=== PATIENT | male | born 1940 | race Caucasian/White ===

== ENCOUNTER → 2016-07-02 | Outpatient (CLI) | payer MEDICARE | LOC: RAD 09:45 | PROVIDERS: ATTEND Student in an Organized Health Care Education/Training Program | DX: M54.16 Radiculopathy, lumbar region (principal) | CPT/HCPCS: 72148 ==

== ENCOUNTER → 2016-07-21 | Outpatient (CLI) | payer MEDICARE, OTHER ==
[~2016-07-21] MED LIST: AMINOPHYLLINE INJ/PF 250 MG/10 ML SDV IV ONE; REGADENOSON INJ 0.4 MG/5 ML DISP.SYRIN IV ONE
--- NOTE | 2016-07-21 13:23 | XCELERA REPORT ---
[address] [address] Transthoracic Echocardiogram Report Name: WINIFRED ALVAREZ Age: 75 yrs Gender: Male : 1940 Patient Status: Outpatient Patient Location: RAD Study Date: 07/21/2016 09:39 AM Height: 70 in Weight: 222 lb BSA: 2.2 m2 Procedure: A complete two-dimensional transthoracic echocardiogram was performed (2D, M-mode, spectral and color flow Doppler). The study was technically difficult with many images being suboptimal in quality. Reason For Study: CAD, SOB Ordering Physician: DELFINA FAULKNER Performed By: Janee Guo Interpretation Summary The left ventricular ejection fraction is normal. There is borderline concentric left ventricular hypertrophy. Doppler measurements suggest impaired left ventricular relaxation, which is associated with grade I/IV or mild diastolic dysfunction The left ventricle is grossly normal size. Wall motion cannot be accurately commented on, but no definite regional wall motion abnormalities noted. The right ventricular systolic function is normal. The left atrium is borderline dilated. The right atrium is normal in size There is a trace amount of mitral regurgitation There is no mitral valve stenosis. There is no aortic valve stenosis No aortic regurgitation is present. There is a trace or physiologic amount of tricuspid regurgitation Tricuspid regurgitation jet envelope not well defined to measure RV systolic pressure accurately. The aortic root is not well visualized but is probably normal size. The inferior vena cava appeared normal and decreased > 50% with respiration (RAP 5-10 mmHg) There is no pericardial effusion. MMode/2D Measurements \T\ Calculations RVDd: 2.7 cm LVIDd: 5.0 cm FS: 38.1 % Ao root diam: 3.3 cm IVSd: 0.96 cm LVIDs: 3.1 cm EDV(Teich): 120.7 ml LVPWd: 0.96 cmESV(Teich): 38.6 ml Ao root area: 8.7 cm2 EF(Teich): 68.0 % LA dimension: 3.7 cm LVOT diam: 2.3 cm LVOT area: 4.3 cm2 Doppler Measurements \T\ Calculations MV E max vanessa: MV P1/2t max vanessa: Ao V2 max: LV V1 max P.9 cm/sec 89.1 cm/sec 157.5 cm/sec 6.4 mmHg MV A max vanessa: MV P1/2t: 56.5 msec Ao max PG: LV V1 max: 112.2 cm/sec MVA(P1/2t): 3.9 cm2 9.9 mmHg 126.4 cm/sec MV E/A: 0.78 MV dec slope: [place](V,D): 3.4 cm2 462.0 cm/sec2 PA V2 max: TR max vanessa: 64.8 cm/sec 205.6 cm/sec PA max P.7 mmHgTR max P.9 mmHg Left Ventricle The left ventricle is grossly normal size. There is borderline concentric left ventricular hypertrophy. The left ventricular ejection fraction is normal. Doppler measurements suggest impaired left ventricular relaxation, which is associated with grade I/IV or mild diastolic dysfunction. Wall motion cannot be accurately commented on, but no definite regional wall motion abnormalities noted. Right Ventricle The right ventricle is grossly normal size. There is normal right ventricular wall thickness. The right ventricular systolic function is normal. Atria The right atrium is normal in size. The left atrium is borderline dilated. Interarterial septum not well visualized and not well dopplered. Cannot comment on ASD/PFO presence. Mitral Valve There is mild mitral annular calcification. There is no mitral valve stenosis. There is a trace amount of mitral regurgitation. Aortic Valve The aortic valve is mildly calcified. There is no aortic valve stenosis. No aortic regurgitation is present. Tricuspid Valve The tricuspid valve is not well visualized, but is grossly normal. There is no tricuspid stenosis. There is a trace or physiologic amount of tricuspid regurgitation. Tricuspid regurgitation jet envelope not well defined to measure RV systolic pressure accurately. Pulmonic Valve The pulmonic valve is not well visualized. Great Vessels The aortic root is not well visualized but is probably normal size. The inferior vena cava appeared normal and decreased > 50% with respiration (RAP 5-10 mmHg). Effusions There is no pericardial effusion. : DELFINA FAULKNER > Delfina Faulkner
--- NOTE | 2016-07-22 10:06 | DRAGON STRESS TEST REPORT ---
INTRAVENOUS LEXISCAN CARDIOLITE STRESS TEST USING SINGLE PHOTON EMMISION COMPUTERIZED TOMOGRAPHIC. DATE OF PROCEDURE: July 21, 2016 INDICATION : Shortness of breath CARDIAC RISK FACTORS: Hypertension, dyslipidemia, known CAD RESTING EKG: Sinus rhythm, no Baseline ST-T wave changes STRESS EKG: No significant changes noted with LexiScan bolus REASON FOR TERMINATION: Protocol. PROCEDURE REPORT: Baseline heart rate 63 beats per minute with blood pressure of 153/65. Patient had no significant complaints. Heart rate at 2 minutes post bolus 94 with a blood pressure of 124/51. 3 minutes post bolus heart rate 77 with blood pressure of 133/52. No significant EKG changes were noted. Patient had no significant complaints during the procedure or postprocedure. CONCLUSIONS: Normal EKG and hemodynamic response to IV LexiScan. NUCLEAR DATA: At rest the patient was given 15.0 millicuries of technetium 99 sestamibi injected intravenously. As per protocol rest gated SPECT images were obtained. Subsequently the patient was given intravenous LexiScan at a dose of 0.4 mg in 5 mL intravenously, followed by flush with normal saline. Subsequently the stress dose of 42.9 millicuries of technetium 99 sestamibi was injected intravenously. As per protocol stress gated images were obtained. NUCLEAR INTERPRETATION: Both raw and processed data were used for interpretation. Visual, qualitative, computer-generated quantitative data was used. There was good myocardial uptake of technetium compound. Motion artifact and soft tissue attenuations were noted. Increased visceral uptake was noted. No definitive areas of transient perfusion defect noted, except for borderline decreased uptake in the mid anterior wall and mid anterior septum, total area of small, 2 out of 17 segments. No definitive areas of fixed perfusion defect or scars noted. EKG gated imaging showed LV EF at 56 %, rest and stress gated EF similar visually. T. I D. ratio was 1.19. Lung heart ratio noted to be within normal limits 0.32. No significant extracardiac and abnormal radiotracer activities were noted. RV free wall uptake was noted to be normal. IMPRESSION: Also refer to comments under nuclear interpretation. Also test results needs to be interpreted in the context of pretest probability. 1. There is no definitive scintigraphic evidence of LexiScan induced myocardial ischemia, except for borderline transient perfusion defect in the mid anterior and mid anterior septum area. Probably not significant but clinical correlation is requested. 2. There is no definitive scintigraphic evidence of myocardial infarction/scar. 3. EKG gated imaging shows left ejection fraction of approximately 56 %. 4. Clinical correlation requested as occasionally single vessel disease or balanced ischemia could be missed. In approximately 10% of the cases Lexiscan may not cause adequate vasodilatory stress. RECOMMENDATIONS: Aggressive risk factor modification, medical therapy. Clinical correlation with echocardiogram derived ejection fraction. Inability to exercise by itself can lead to increased cardiovascular event risks. Consider cardiology consultation and or follow-up if clinically indicated. I AM AVAILABLE FOR CARDIOLOGY CONSULTATION AND FOLLOWUP IF REQUESTED BY PMD Delfina Morris M.D., GRACIE Director [employer] automotive exhaust emissions technician, Board certified in cardiovascular diseases, Nuclear cardiology, Echocardiography Cardiac CT and cardiac MRI Ph. [phone] [facility]
== END ==
LOC: RAD 07:31
PROVIDERS: ATTEND Internal Medicine Cardiovascular Disease
DX: I25.10 Atherosclerotic heart disease of native coronary artery without angina pectoris (principal); R06.02 Shortness of breath
CPT/HCPCS: 93306; 93017; 78452; A9500; J2785; J0280; Q9969

== ENCOUNTER 2017-05-30 18:36 | Emergency (ER) | payer MEDICARE, OTHER ==
[2017-05-30] MEDS ORDERED: HYDROCODONE/ACETAMINOPHEN 5-325 MG TABLET PO ONE (22:55)
--- NOTE | 2017-05-30 23:04 | ER Document Report ---
ED Medical Screen (RME) - General Chief Complaint: Back Pain Stated Complaint: BACK PAIN Time Seen by Provider: 05/30/17 22:54 Notes: 76-year-old male, chief complaint of pain in his back on the left side in the middle that is sharp and nauseating, started about 5 hours ago, he also has pain in his mid upper abdomen. He denies fever or chills. He denies pain up in his chest, he denies shortness of breath or lightheadedness. Denies history of kidney stone, past medical history of [place], hypertension, partial small bowel resection. TRAVEL OUTSIDE OF THE [place] IN LAST 30 DAYS: No - Related Data Allergies/Adverse Reactions: No Known Allergies Allergy (Unverified 02/05/16 11:48) Past Medical History - Social History Chew tobacco use (# tins/day): No Frequency of alcohol use: None Drug Abuse: None - Past Medical History Cardiac Medical History: Reports: Hx Heart Attack, Hx Hypertension Pulmonary Medical History: Denies: Hx Asthma Neurological Medical History: Denies: Hx Cerebrovascular Accident, Hx Seizures Renal/ Medical History: Denies: Hx Peritoneal Dialysis GI Medical History: Denies: Hx Hepatitis, Hx Hiatal Hernia, Hx Ulcer Infectious Medical History: Denies: Hx Hepatitis Past Surgical History: Reports: Hx Abdominal Surgery - small bowel removal. Denies: Hx Open Heart Surgery, Hx Pacemaker Physical Exam - Vital signs Vitals: Temp Pulse Resp BP Pulse Ox 98.5 F 51 L 16 135/61 H 100 05/30/17 19:01 05/30/17 19:01 05/30/17 19:01 05/30/17 19:01 05/30/17 19:01 - Abdominal Tenderness: Tender - tender in epigastric region, otherwise unremarkable - Back Back: Tender - left mid flank, no midline tenderness Course - Re-evaluation Re-evalutation: 05/30/17 23:00 Patient with palpable tenderness over both the epigastric area and the left mid flank, he does appear uncomfortable, asking for something for pain and nausea. Checking cardiacs, acute abdominal series, general workup including lipase and urine. Workup pending. Vital signs stable at this time. - Vital Signs Vital signs: Temp Pulse Resp BP Pulse Ox 98.0 F 56 L 20 124/56 L 100 05/30/17 22:46 05/30/17 22:46 05/30/17 22:46 05/30/17 22:46 05/30/17 22:46
[2017-05-30] MEDS ORDERED: ONDANSETRON HCL INJ/PF 4 MG/2 ML SDV IV ONE (23:30)
[2017-05-30] MEDS ORDERED: MORPHINE SULFATE 10 MG/ML INJ IV ONE (23:30)
[2017-05-30 23:32] LABS: APPEARANCE,URINE SLIGHTLY-CLOUDY; BILIRUBIN,URINE NEGATIVE (NEGATIVE); COLOR,URINE YELLOW; GLUCOSE, URINE NEGATIVE (NEGATIVE); KETONES,URINE NEGATIVE (NEGATIVE); LEUKOCYTE ESTERASE,URINE NEGATIVE (NEGATIVE); NITRITE,URINE NEGATIVE (NEGATIVE); PROTEIN,URINE NEGATIVE (NEGATIVE); URINE SPECIFIC GRAVITY 1.028; UROBILINOGEN,URINE NEGATIVE mg/dL (<2.0)
--- NOTE | 2017-05-30 23:35 | RADIOLOGY REPORT (SQ) ---
EXAM DESCRIPTION: ACUTE ABDOMEN SERIES COMPLETED DATE/TIME: 05/30/2017 11:21 pm REASON FOR STUDY: sharp epigastric and mid back pain, bowel surg COMPARISON: None. NUMBER OF VIEWS: Three views. TECHNIQUE: Frontal chest, supine abdomen and upright/decubitus abdomen radiographic images acquired. LIMITATIONS: None. FINDINGS: CHEST: Lungs clear of infiltrates. FREE AIR: No free air identified. BOWEL GAS PATTERN: There are a few mildly dilated small bowel loops over the upper central abdomen wi th air fluid levels. CALCIFICATIONS: No suspicious calcifications. HARDWARE: Cholecystectomy clips. SOFT TISSUES: No gross mass or suggestion of organomegaly. BONES: No acute fracture. Moderate lumbar degenerative changes. OTHER: No other significant finding. IMPRESSION: There are a few mildly dilated small bowel loops over the upper central abdomen with sma ll air fluid levels, possible developing obstruction. TECHNICAL DOCUMENTATION: JOB ID: [id number] [id number] [employer]- All Rights Reserved
[2017-05-30 23:50] LABS: ALANINE AMINOTRANSFERASE 33 U/L (21-72); ALBUMIN 4.9 g/dL (3.5-5.0); ALKALINE PHOSPHATASE 44 U/L (38-126); ANION GAP 15 (5-19); ASPARTATE AMINO TRANSFERASE 32 U/L (17-59); BILIRUBIN,DIRECT 0.5 mg/dL (0.0-0.4); BLOOD UREA NITROGEN 22 mg/dL (7-20); CALCIUM 10.2 mg/dL (8.4-10.2); CARBON DIOXIDE 21 mmol/L (22-30); CHLORIDE 107 mmol/L (98-107); CREATINE KINASE 125 U/L (55-170); GLUCOSE 114 mg/dL (75-110); LIPASE 74.4 U/L (23-300); POTASSIUM 4.9 mmol/L (3.6-5.0); SODIUM 143.1 mmol/L (137-145); TOTAL PROTEIN 7.7 g/dL (6.3-8.2)
[2017-05-31 00:02] LABS: CREATINE KINASE MB 0.98 ng/mL (<4.55)
[2017-05-31 00:03] LABS: TROPONIN I < 0.012 ng/mL
[2017-05-31 00:05] LABS: ABSOLUTE LYMPHOCYTES (AUTO) 0.6 10^3/uL (0.5-4.7); ABSOLUTE MONOCYTES (AUTO) 0.3 10^3/uL (0.1-1.4); ABSOLUTE NEUT (AUTO) 6.1 10^3/uL (1.7-8.2); BASOPHILS % (AUTO) 0.6 % (0-2); EOSINOPHILS % (AUTO) 0.2 % (0-6); HEMATOCRIT 34.7 % (37.9-51.0); HEMOGLOBIN 11.6 g/dL (13.5-17.0); LYMPHOCYTES % (AUTO) 8.4 % (13-45); MEAN CORPUSCULAR HEMOGLOBIN 28.8 pg (27.0-33.4); MEAN CORPUSCULAR HGB CONC 33.5 g/dL (32.0-36.0); MEAN CORPUSCULAR VOLUME 86 fl (80-97); MONOCYTES % (AUTO) 4.2 % (3-13); PLATELET COUNT 137 10^3/uL (150-450); RED BLOOD COUNT 4.03 10^6/uL (4.35-5.55); RED CELL DISTRIBUTION WIDTH 13.9 % (11.5-14.0); SEGMENTED NEUTROPHILS % (AUTO) 86.6 % (42-78); TOTAL CELLS COUNTED % (AUTO) 100 %; WHITE BLOOD COUNT 7.1 10^3/uL (4.0-10.5)
--- NOTE | 2017-05-31 01:16 | ER Document Report ---
ED General - General Chief Complaint: Back Pain Stated Complaint: BACK PAIN Time Seen by Provider: 05/30/17 22:54 Notes: Patient is a pleasant 76-year-old male presents with complaint of pain over his left lower back. No dysuria. No urinary frequency. No difficulty urinating. No loss of bowel control. Pain started over the last 24 hours. He is worse with movement. No pain rating into his legs. No recent fevers or infections. No vomiting. No diarrhea. No history of chronic back pain. No abdominal pain. No associated chest pain. TRAVEL OUTSIDE OF THE [place] IN LAST 30 DAYS: No - Related Data Allergies/Adverse Reactions: No Known Allergies Allergy (Unverified 02/05/16 11:48) Past Medical History - Social History Smoking Status: Former Smoker Chew tobacco use (# tins/day): No Frequency of alcohol use: None Drug Abuse: None Family History: Reviewed & Not Pertinent Patient has suicidal ideation: No Patient has homicidal ideation: No - Past Medical History Cardiac Medical History: Reports: Hx Heart Attack, Hx Hypertension Pulmonary Medical History: Denies: Hx Asthma Neurological Medical History: Denies: Hx Cerebrovascular Accident, Hx Seizures Renal/ Medical History: Denies: Hx Peritoneal Dialysis GI Medical History: Denies: Hx Hepatitis, Hx Hiatal Hernia, Hx Ulcer Infectious Medical History: Denies: Hx Hepatitis Past Surgical History: Reports: Hx Abdominal Surgery - small bowel removal. Denies: Hx Open Heart Surgery, Hx Pacemaker Review of Systems - Review of Systems Notes: My Normal Review Basic REVIEW OF SYSTEMS: CONSTITUTIONAL : Denies fever, chills, or sweats. Denies recent illness. EENT: Denies eye, ear, throat, or mouth pain or symptoms. Denies nasal or sinus congestion. CARDIOVASCULAR: Denies chest pain. RESPIRATORY: Denies cough, cold, or chest congestion. Denies shortness of breath, difficulty breathing, or wheezing. GASTROINTESTINAL: Denies abdominal pain. Denies nausea, vomiting, or diarrhea. Denies constipation. Last BM: GENITOURINARY: Denies difficulty urinating, painful urination, burning, frequency, or blood in urine. MUSCULOSKELETAL: Left lower back pain SKIN: Denies rash or skin lesions. NEUROLOGICAL: Denies focal weakness or paralysis or loss of use of either side. Denies problems with gait or speech. Denies sensory or motor loss. ALL OTHER SYSTEMS REVIEWED AND NEGATIVE. Physical Exam - Vital signs Vitals: Temp Pulse Resp BP Pulse Ox 98.5 F 51 L 16 135/61 H 100 05/30/17 19:01 05/30/17 19:01 05/30/17 19:01 05/30/17 19:01 05/30/17 19:01 - Notes Notes: General Appearance: Well nourished, alert, cooperative, no acute distress, moderate obvious discomfort. Vitals: reviewed, See vital signs table. Head: no swelling or tenderness to the head Eyes: PERRL, EOMI, Conjuctiva clear Mouth: No decreasd moisture Lungs: No wheezing, No rales, No rhonci, No accessory muscle use, good air exchange bilaterally. Heart: Normal rate, Regular rythm, No murmur, no rub Abdomen: Normal BS, soft, No rigidity, No abdominal tenderness, No guarding, no rebound, Back: Patient has easily reproducible pain to palpation over the left lumbar paraspinal musculature. With mild pressure of this area the patient jumps screams and says that is where his pain is. The remainder of the back is nontender. No pain into the flank to palpation. Extremities: strength 5/5 in all extremities, good pulses in all extremities, no swelling or tenderness in the extremities, no edema. Skin: warm, dry, appropriate color, no rash Neuro: speech clear, oriented x 3, normal affect, responds appropriately to questions. Normal distal sensation. Course - Re-evaluation Re-evalutation: 05/31/17 01:16 Normal x-rays read by the radiologist as some small dilated loops of bowel which could represent possible developing obstruction. Patient's symptoms are not consistent with obstruction. I did reassess him. He has no pain to palpation of his abdomen. He has had no vomiting. He is having normal bowel movements without difficulty. He says been passing gas well. His pain is still all in his left lower back. It is easily reproducible to palpation. Does not have any blood in his urine but still he has never had issues with his back before and therefore is possibly this could be kidney stone. We will obtain a CT scan to further evaluate. Patient is agreeable to this. 05/31/17 05:25 CT scan did not show any evidence of kidney stone. There is no findings consistent with bowel obstruction either. Clinically has presentation and exam is not consistent at all with bowel obstruction. Patient's pain seems very musculoskeletal on exam and that is worse with movements and also is easily reproducible with pinpoint palpation over the left lumbar paraspinal musculature. I will place patient on Ultram. Encouraged him to take Tylenol Motrin first. If the Tylenol Motrin are not taking care of his pain that he should take the Ultram for the pain control. I informed him he must follow-up with his doctor next 2-3 days for reevaluation. I informed him return to ER immediately if he has any change in location of the pain, any abdominal pain, worsening pain, fevers, or feels unwell. Patient agrees with plan and will be discharged home. Dictation of this chart was performed using voice recognition software; therefore, there may be some unintended grammatical errors. - Vital Signs Vital signs: Temp Pulse Resp BP Pulse Ox 98.6 F 72 16 130/68 H 100 05/31/17 03:44 05/31/17 03:44 05/31/17 03:44 05/31/17 03:44 05/31/17 03:44 - Laboratory Result Diagrams: 05/30/17 23:55 05/30/17 23:00 Laboratory results interpreted by me: 05/30/17 05/30/17 05/30/17 23:00 23:00 23:55 RBC 4.03 L Hgb 11.6 L Hct 34.7 L Plt Count 137 L Seg Neutrophils % 86.6 H Lymphocytes % 8.4 L Carbon Dioxide 21 L BUN 22 H Glucose 114 H Direct Bilirubin 0.5 H Urine Ascorbic Acid 40 H Discharge - Discharge Clinical Impression: Back pain Qualifiers: Back pain location: low back pain Chronicity: acute Back pain laterality: left Sciatica presence: without sciatica Qualified Code(s): M54.5 - Low back pain Condition: Good Disposition: HOME, SELF-CARE Instructions: Oral Narcotic Medication ([facility]) Additional Instructions: Your pain appears to be coming from a muscle in your back. I suspect it is the muscle being that you are so tender to touch over the lumbar paraspinal muscle and the remainder of you workup did not show any other concerning findings that could be causing your pain. Please follow up with your doctor in 1-2 days for clsoe reevaluation. We did perform a CT scan looking for evidence of kidney stones. Your CT scan did not show any concerning findings. The only abnormality was a cyst on your pancreas. Anytime you have a cyst on your pancreas you need to have repeat imaging done in the future to make sure it is stable and not changing in size. Please inform your doctor of this so he can follow this and arrange repeat imaging when needed. Please return to the ER immediately if you have worsening pain, change in location of pain, any abdominal pain, vomiting, fevers, or if you feel that you are worsening. Take the Ultram for pain if Tylenol is not controlling your pain. The Ultram may make you a little sleepy. Some pople do get vomiting with this medication. Please stop taking the medication and return to the ER or your doctor if you develop vomiting after taking it. Prescriptions: Tramadol HCl [Ultram 50 mg Tablet] 50 mg PO Q6HP PRN #14 tablet PRN Reason: Referrals: CRISTIAN HERNANDEZ DO [Primary Care Provider] - 06/02/17
--- NOTE | 2017-05-31 02:10 | RADIOLOGY REPORT (SQ) ---
EXAM DESCRIPTION: CT ABDOMEN AND PELVIS WITHOUT CONTRAST CLINICAL HISTORY: left back and flank pain COMPARISON: None Available. TECHNIQUE: CT of the abdomen and pelvis without IV contrast. FINDINGS: Abdomen: The liver has normal size and density. Punctate likely granuloma involving the right hepatic lobe. Prior cholecystectomy. 6.1 x 3.2 cm cystic structure arising from the tail of the pancreas. The spleen and adrenal glands are unremarkable. The kidneys have normal size and contour without evidence of hydronephrosis. No obstructing ureteral calculi. Punctate nonobstructing inferior pole right renal calculus. Aortoiliac atherosclerosis. IVC is unremarkable. No free intraperitoneal air. The stomach and duodenum have normal course. Pelvis: Small bilateral fat-containing inguinal hernias. Enlarged prostate. Urinary bladder is unremarkable. No free pelvic fluid or lymphadenopathy. No dilated loops of large or small bowel. No evidence of appendicitis. The visualized lung bases are clear. No destructive bone lesions identified. Degenerative change of the lumbar spine. DLP: 849.91 mGy-cm IMPRESSION: 1. No acute inflammatory or obstructive abnormality identified. 2. There is a 6.1 cm cystic structure arising from the tail of the pancreas. This could represent a pancreatic pseudocyst however other cystic lesions of the pancreas could produce a similar appearance. Correlation for history of pancreatitis recommended. Contrast-enhanced CT or MRI of the abdomen recommended for more complete characterization. 3. Punctate nonobstructing left renal calculus. 4. Enlarged prostate. This exam was performed according to our departmental dose-optimization program, which includes automated exposure control, adjustment of the mA and/or kV according to patient size and/or use of iterative reconstruction technique.
[2017-05-31] MEDS ORDERED: KETOROLAC TROMETHAMINE INJ/PF 30 MG/1 ML SDV IV ONE (02:25)
[2017-05-31 03:45] VITALS: BP 130/68
--- NOTE | 2017-05-31 08:48 | EKG REPORT ---
SEVERITY:- ABNORMAL ECG - SINUS BRADYCARDIA PROBABLE ANTEROSEPTAL INFARCT, AGE INDETERM : Confirmed by: Lenore May MD 31-May-2017 08:47:32
== END 2017-05-31 03:45 | disposition home or self-care (01) ==
LOC: ER 18:36
DX: M54.5 Low back pain (principal); M54.9 Dorsalgia, unspecified; Z87.891 Personal history of nicotine dependence
CPT/HCPCS: 93005; 99284; 96374; 36415; 82553; 82550; 83690; 85025; 80053; 81001; 84484; 74022; 74176; 93010; J2270; J2405

== ENCOUNTER → 2017-07-14 | Outpatient (CLI) | payer MEDICARE, OTHER ==
[~2017-07-14] MED LIST changes: -AMINOPHYLLINE INJ/PF 250 MG/10 ML SDV IV ONE; +DIAZEPAM 5 MG TABLET ONE; -REGADENOSON INJ 0.4 MG/5 ML DISP.SYRIN IV ONE
--- NOTE | 2017-07-14 17:18 | RADIOLOGY REPORT (SQ) ---
EXAM DESCRIPTION: MRI ABDOMEN COMBO COMPLETED DATE/TIME: 07/14/2017 4:12 pm REASON FOR STUDY: K86.2 CYST OF PANCREAS K86.2 CYST OF PANCREAS COMPARISON: None. TECHNIQUE: Multiplanar multisequence imaging performed without and with contrast including sagittal, axial and coronal T2, axial T1, axial gradient fat sat T1, axial, sagittal and coronal fat sat T1 po st contrast. CONTRAST TYPE AND DOSE: 20 mL Prohance. RENAL FUNCTION: GFR > 60. LIMITATIONS: Motion. FINDINGS: LIVER: Normal size. No masses. No dilated ducts. CBD normal. SPLEEN: Normal size. No focal lesions. PANCREAS: Well-circumscribed lesion in the tail measuring 3.0 x 5.3 cm AP by transverse diameter. He terogeneously bright on T2 with central septations of decreased T2 signal inferiorly and more homogen eous high T2 signal superiorly. Dark on T1, no enhancement. No obvious communication with the pancr eatic duct. Pancreatic duct is not dilated. GALLBLADDER: No masses. No stones. No gallbladder wall thickening or pericholecystic fluid. ADRENAL GLANDS: No significant masses or asymmetry. RIGHT KIDNEY AND URETER: No masses. No hydronephrosis. LEFT KIDNEY AND URETER: No masses. No hydronephrosis. AORTA AND VESSELS: No aneurysm. RETROPERITONEUM: No retroperitoneal adenopathy, hemorrhage or masses. BOWEL: No visualized masses. No inflammation. No significant dilatation. ABDOMINAL WALL AND PERITONEUM: No hernias. No free fluid. BONES: No acute or significant findings. OTHER: No other significant finding. IMPRESSION: Nonenhancing complex cystic lesion in the tail of the pancreas. Differential is complex pseudocyst (particularly if history of chronic pancreatitis,) cystadenoma, IPMN, among others. Rela tively low suspicion of malignancy but insufficient negative predictive value based on imaging appear ance alone. Potentially amenable to CT-guided biopsy. Consider endoscopic ultrasound. TECHNICAL DOCUMENTATION: JOB ID: [id number] [employer]- All Rights Reserved Reading location - IP/workstation name: [email or web address]
== END ==
LOC: RAD 14:50
PROVIDERS: ATTEND Family Medicine
DX: K86.2 Cyst of pancreas (principal)
CPT/HCPCS: 82565; 74183; A9270

== ENCOUNTER 2017-08-15 08:29 | Day surgery (SDC) | payer MEDICARE ==
[2017-08-15] MEDS ORDERED: DIPHENHYDRAMINE HCL 50 MG/ML VIAL ONE (09:22)
[2017-08-15] MEDS ORDERED: ONDANSETRON HCL INJ/PF 4 MG/2 ML SDV ONE (09:22)
[2017-08-15] MEDS ORDERED: FLUMAZENIL INJ 0.5 MG/5 ML VIAL ONE (09:23)
[2017-08-15] MEDS ORDERED: FENTANYL CITRATE INJ/PF 100 MCG/2 ML AMPUL ONE (09:23)
[2017-08-15] MEDS ORDERED: NALOXONE HCL INJ/PF 0.4 MG/1 ML SDV ONE (09:23)
[2017-08-15] MEDS ORDERED: EPINEPHRINE INJ 1 MG/10 ML DISP.SYRIN ONE (09:23)
[2017-08-15] MEDS ORDERED: MIDAZOLAM 2 MG/2 ML INJ ONE (09:23)
[2017-08-15] MEDS ORDERED: GLUCAGON,HUMAN RECOMB 1 MG INJ ONE (09:24)
[2017-08-15] MEDS: MIDAZOLAM 2 MG/2 ML INJ ONE ×2 (09:26→09:30)
--- NOTE | 2017-08-15 09:47 | Operative Report ---
Operative Report DATE OF SURGERY: 08/15/17 Operative Report: The risks, benefits and alternatives of the procedure including risks of bleeding, perforation requiring surgery are explained to the patient in detail and informed consent is obtained. Patient is taken back to the endoscopy suite and placed in the left, lateral decubital position. Timeout was called. Conscious sedation medications are provided. A rectal examination is done which did not reveal any masses, tears or fissures. An Olympus videoscope was inserted into the patient's rectum. It is carefully advanced all the way to the cecum. The cecum was identified by the usual anatomical landmarks including the ileocecal valve as well as the appendiceal office. Photodocumentation is obtained. The scope was then sequentially pulled back via the various segments of the colon including the ascending colon, hepatic flexure, transverse colon, splenic flexure, descending colon and finally into the rectosigmoid portions of the colon. Retroflexion maneuvers performed. PREOPERATIVE DIAGNOSIS: Abdominal pain. Colorectal cancer screening. 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 POSTOPERATIVE DIAGNOSIS: Ulcer at the anastomotic site status post biopsy OPERATION: Colonoscopy with biopsy SURGEON: ANTHONY NICHOLAS ANESTHESIA: Moderate Sedation - 3 mg of Versed, 25 mcg of fentanyl. Conscious sedation monitoring time 30 minutes. TISSUE REMOVED OR ALTERED: As noted above. COMPLICATIONS: None. ESTIMATED BLOOD LOSS: None. INTRAOPERATIVE FINDINGS: As noted above. PROCEDURE: Patient tolerated the procedure well. No immediate postprocedure complications are noted. Patient discharged in good condition. Discharge date 08/15/2017. Discharge diet: Regular. Discharge activity: Regular. 2-3 week follow-up to discuss findings. Patient is instructed call the office or proceed to the emergency room should there be any further problems or questions. We will went pathology.
[2017-08-15 11:31] VITALS: BP 111/51
== END 2017-08-15 10:40 | disposition home or self-care (01) ==
LOC: END 08:29
PROVIDERS: ATTEND Internal Medicine Gastroenterology
PROC: 0DBE8ZX Excision of Large Intestine, Via Natural or Artificial Opening Endoscopic, Diagnostic (ICD-10-PCS; principal; 2017-08-15 09:00)
DX: K28.9 Gastrojejunal ulcer, unspecified as acute or chronic, without hemorrhage or perforation (principal); K52.9 Noninfective gastroenteritis and colitis, unspecified; E78.00 Pure hypercholesterolemia, unspecified; M19.90 Unspecified osteoarthritis, unspecified site; F17.210 Nicotine dependence, cigarettes, uncomplicated; E78.2 Mixed hyperlipidemia; M47.9 Spondylosis, unspecified; I25.10 Atherosclerotic heart disease of native coronary artery without angina pectoris; Z79.899 Other long term (current) drug therapy; Z79.82 Long term (current) use of aspirin; Z79.891 Long term (current) use of opiate analgesic
CPT/HCPCS: 45380; 88305 ×2; J2250; J3010; J0171; J1200; J1610; J2310; J2405; J3490